=== PATIENT | male | born 1975 | race Hispanic/Latino ===

== ENCOUNTER 2020-11-13 00:58 | Emergency (ER) | payer SELFPAY ==
--- NOTE | 2020-11-13 03:26 | ER ---
[facility] Name: Yoel Keller Age: 45 yrs Sex: Male : 1975 Arrival Date: 11/13/2020 Time: 00:59 Bed 12 Private MD: Diagnosis: Pain in right leg Presentation: 11/13 02:08 Chief complaint: Patient states: pain in right leg that pt has been taking tylenol and dm5 ibuprofen for at home but the pain will make it hard to sleep at night. pain radiates from from inner thigh around knee to outer thigh. Coronavirus screen: Client denies travel out of the [place] in the last 14 days. At this time, the client does not indicate any symptoms associated with coronavirus-19. Ebola Screen: Patient negative for fever greater than or equal to 101.5 degrees Fahrenheit, and additional compatible Ebola Virus Disease symptoms Patient denies exposure to infectious person. Patient denies travel to an Ebola-affected area in the 21 days before illness onset. No symptoms or risks identified at this time. Initial Sepsis Screen: Does the patient meet any 2 criteria? No. Patient's initial sepsis screen is negative. Does the patient have a suspected source of infection? No. Patient's initial sepsis screen is negative. Risk Assessment: Do you want to hurt yourself or someone else? Patient reports no desire to harm self or others. Onset of symptoms was November 08, 2020. 02:08 Method Of Arrival: Ambulatory dm5 02:08 Acuity: JESSICA 4 dm5 Triage Assessment: 02:11 General: Appears in no apparent distress. Behavior is calm, cooperative. Pain: dm5 Complains of pain in right quadriceps. EENT: No deficits noted. No signs and/or symptoms were reported regarding the EENT system. Neuro: No deficits noted. Cardiovascular: No deficits noted. Respiratory: No deficits noted. GI: No deficits noted. No signs and/or symptoms were reported involving the gastrointestinal system. : No deficits noted. No signs and/or symptoms were reported regarding the genitourinary system. Derm: No deficits noted. No signs and/or symptoms reported regarding the dermatologic system. Musculoskeletal: Reports pain in right quadriceps. Historical: - Allergies: 02:11 No Known Allergies; dm5 - Home Meds: 02:11 None [Active]; dm5 - PMHx: 02:11 None; dm5 - PSHx: 02:11 Carpal Tunnel Repair; Appendectomy; dm5 - Immunization history:: Adult Immunizations up to date. - Social history:: Smoking status: Patient denies any tobacco usage or history of. - Family history:: not pertinent. ED Course: 00:59 Patient arrived in ED. cl3 02:04 Oneil Hernandez MD is Attending Physician. sam 02:08 Danielle Hawkins, RN is Primary Nurse. dm5 02:11 Triage completed. dm5 02:11 Arm band placed on Patient placed in an exam room. dm5 03:14 US Extremity Venous Unilateral Ltd In Process Unspecified. EDMS 03:25 Mainor Adan MD is Referral Physician. sam 03:34 Lumbar Spine (3 Views) XRAY In Process Unspecified. EDMS 03:34 Femur Right XRAY In Process Unspecified. EDMS Administered Medications: 03:30 Drug: Motrin 600 mg Route: PO; dm5 Outcome: 03:25 Discharge ordered by . sam 04:47 Patient left the ED. dm5 Signatures: Dispatcher [employer] EDMS Danielle Hawkins, RN RN dmOneil Mtz MD MD cha Lewis, Charde cl3
--- NOTE | 2020-11-13 03:26 | EDPHYS ---
Physician Documentation [facility] Name: Yoel Keller Age: 45 yrs Sex: Male : 1975 Arrival Date: 11/13/2020 Time: 00:59 Bed 12 Private MD: KAYLEN Physician Oneil Hernandez HPI: 11/13 02:35 This 45 yrs old Male presents to ER via Ambulatory with complaints of Leg Pain.sam 02:35 The patient presents with decreased range of motion, pain, tenderness. The complaints sam affect the medial aspect of right thigh and right quadriceps. Context: The problem was sustained at an unknown site, resulted from an unknown cause, the patient can partially bear weight, the patient is able to ambulate. Onset: The symptoms/episode began/occurred 2 week(s) ago. Modifying factors: The symptoms are alleviated by elevating leg, remaining still, the symptoms are aggravated by movement, weight bearing, bending knee. Associated signs and symptoms: The patient has no apparent associated signs or symptoms. Severity of symptoms: At their worst the symptoms were mild, moderate, in the emergency department the symptoms are unchanged. Historical: - Allergies: 02:11 No Known Allergies; dm5 - Home Meds: 02:11 None [Active]; dm5 - PMHx: 02:11 None; dm5 - PSHx: 02:11 Carpal Tunnel Repair; Appendectomy; dm5 - Immunization history:: Adult Immunizations up to date. - Social history:: Smoking status: Patient denies any tobacco usage or history of. - Family history:: not pertinent. ROS: 02:35 Constitutional: Negative for fever, chills, and weight loss, Eyes: Negative for injury, sam pain, redness, and discharge, ENT: Negative for injury, pain, and discharge, Neck: Negative for injury, pain, and swelling, Cardiovascular: Negative for chest pain, palpitations, and edema, Respiratory: Negative for shortness of breath, cough, wheezing, and pleuritic chest pain, Abdomen/GI: Negative for abdominal pain, nausea, vomiting, diarrhea, and constipation, : Negative for injury, bleeding, discharge, and swelling, Skin: Negative for injury, rash, and discoloration, Neuro: Negative for headache, weakness, numbness, tingling, and seizure, Psych: Negative for depression, anxiety, suicide ideation, homicidal ideation, and hallucinations, Allergy/Immunology: Negative for hives, rash, and allergies, Endocrine: Negative for neck swelling, polydipsia, polyuria, polyphagia, and marked weight changes, Hematologic/Lymphatic: Negative for swollen nodes, abnormal bleeding, and unusual bruising. 02:35 Back: Positive for pain at rest, pain with movement, of the lumbar area, left low back and right low back. 02:35 MS/extremity: Positive for decreased range of motion, pain, tenderness, of the medial aspect of right thigh. Exam: 02:35 Constitutional: This is a well developed, well nourished patient who is awake, alert, sam and in no acute distress. Head/Face: Normocephalic, atraumatic. Eyes: Pupils equal round and reactive to light, extra-ocular motions intact. Lids and lashes normal. Conjunctiva and sclera are non-icteric and not injected. Cornea within normal limits. Periorbital areas with no swelling, redness, or edema. ENT: Nares patent. No nasal discharge, no septal abnormalities noted. Tympanic membranes are normal and external auditory canals are clear. Oropharynx with no redness, swelling, or masses, exudates, or evidence of obstruction, uvula midline. Mucous membranes moist. Neck: Trachea midline, no thyromegaly or masses palpated, and no cervical lymphadenopathy. Supple, full range of motion without nuchal rigidity, or vertebral point tenderness. No Meningismus. Chest/axilla: Normal chest wall appearance and motion. Nontender with no deformity. No lesions are appreciated. Cardiovascular: Regular rate and rhythm with a normal S1 and S2. No gallops, murmurs, or rubs. Normal PMI, no JVD. No pulse deficits. Respiratory: Lungs have equal breath sounds bilaterally, clear to auscultation and percussion. No rales, rhonchi or wheezes noted. No increased work of breathing, no retractions or nasal flaring. Abdomen/GI: Soft, non-tender, with normal bowel sounds. No distension or tympany. No guarding or rebound. No evidence of tenderness throughout. Back: No spinal tenderness. No costovertebral tenderness. Full range of motion. Skin: Warm, dry with normal turgor. Normal color with no rashes, no lesions, and no evidence of cellulitis. Neuro: Awake and alert, GCS 15, oriented to person, place, time, and situation. Cranial nerves II-XII grossly intact. Motor strength 5/5 in all extremities. Sensory grossly intact. Cerebellar exam normal. Normal gait. Psych: Awake, alert, with orientation to person, place and time. Behavior, mood, and affect are within normal limits. 02:35 Musculoskeletal/extremity: ROM: limited active range of motion due to pain, in the lateral aspect of right thigh and medial aspect of right thigh, limited passive range of motion due to pain, Circulation is intact in all extremities. Sensation intact. Compartment Syndrome exam of affected extremity: is normal. MDM: 02:04 Patient medically screened. [facility] 02:38 Differential diagnosis: closed fracture, contusion, tendonitis. Data reviewed: vital [facility] signs, nurses notes, radiologic studies, doppler, plain films. Data interpreted: vehicle monitor technician: rate is 90 beats/min, rhythm is regular, Pulse oximetry: on room air is 96 %. Test interpretation: by ED physician or midlevel provider: plain radiologic studies. Counseling: I had a detailed discussion with the patient and/or guardian regarding: the historical points, exam findings, and any diagnostic results supporting the discharge/admit diagnosis, lab results, radiology results, the need for outpatient follow up, for definitive care, a family practitioner, a orthopedic surgeon. 11/13 02:35 Order name: US Extremity Venous Unilateral Ltd [facility] 11/13 02:35 Order name: Lumbar Spine (3 Views) XRAY [facility] 11/13 02:35 Order name: Femur Right [facility] Administered Medications: 03:30 Drug: Motrin 600 mg Route: PO; dm5 Disposition: 11/13/20 03:25 Discharged to Home. Impression: Pain in right leg. - Condition is Stable. - Discharge Instructions: Musculoskeletal Pain, Cryotherapy, [id number], Cryotherapy. - Prescriptions for Ibuprofen 600 mg Oral Tablet - take 1 tablet by ORAL route every 6 hours As needed take with food; 20 tablet. Medrol (Damion) 4 mg Oral Tablets, Dose Pack - take 1 tablet by ORAL route as directed - follow package instructions; 1 packet. - Medication Reconciliation Form, Thank You Letter, Antibiotic Education, Prescription Opioid Use form. - Follow up: Private Physician; When: 2 - 3 days; Reason: Recheck today's complaints, Continuance of care, Re-evaluation by your physician. Follow up: Dr. Mainor Adan; When: 2 - 3 days; Reason: Recheck today's complaints, Re-evaluation by your physician. - Problem is new. - Symptoms have improved. Signatures: Dispatcher [employer] Danielle Arellano, RN RN dm5 Oneil Hernandez MD MD cha Corrections: (The following items were deleted from the chart) 04:47 03:25 11/13/2020 03:25 Discharged to Home. Impression: Pain in right leg. Condition is dm5 Stable. Discharge Instructions: Musculoskeletal Pain, Cryotherapy, [id number], Cryotherapy. Prescriptions for Ibuprofen 600 mg Oral Tablet - take 1 tablet by ORAL route every 6 hours As needed take with food; 20 tablet, Medrol (Damion) 4 mg Oral Tablets, Dose Pack - take 1 tablet by ORAL route as directed - follow package instructions; 1 packet. and Forms are Medication Reconciliation Form, Thank You Letter, Antibiotic Education, Prescription Opioid Use. Follow up: Private Physician; When: 2 - 3 days; Reason: Recheck today's complaints, Continuance of care, Re-evaluation by your physician. Follow up: Dr. Manior Adan; When: 2 - 3 days; Reason: Recheck today's complaints, Re-evaluation by your physician. Problem is new. Symptoms have improved. sam
[2020-11-13] MEDS ORDERED: IBUPROFEN 200 MG TAB PO ONE (03:55)
[2020-11-13] MEDS ORDERED: IBUPROFEN 400 MG TAB ONE (03:55)
--- NOTE | 2020-11-13 09:57 | RAD REPORT ---
EXAM DESCRIPTION: US - Extremity Venous Uni Ltd - 11/13/2020 3:14 am CLINICAL HISTORY: PAIN, right leg Preliminary findings provided at the time of the study. COMPARISON: None. TECHNIQUE: Real-time sonographic evaluation of the right lower extremity deep venous systems was per formed. FINDINGS: Normal compressibility, flow augmentation, phasic flow and spontaneous flow are identified in the right lower extremity common femoral, superficial femoral, popliteal and posterior tibial vei ns. No intraluminal filling defects seen. IMPRESSION: No DVT in the right lower extremity.
--- NOTE | 2020-11-13 09:57 | RAD REPORT ---
EXAM DESCRIPTION: RAD - Lumbar Spine 3 Views - 11/13/2020 3:34 am CLINICAL HISTORY: PAIN COMPARISON: No comparisons FINDINGS: A three-view lumbar spine examination was performed. Lumbar bodies are normal in height and alignment. No fracture or acute bony process seen. No disc spa ce narrowing. No other significant findings. No pars defects identified. IMPRESSION: Negative Lumbar Spine examination.
--- NOTE | 2020-11-13 09:58 | RAD REPORT ---
EXAM DESCRIPTION: RAD - Femur Right - 11/13/2020 3:34 am CLINICAL HISTORY: PAIN COMPARISON: No comparisons FINDINGS: No fracture, dislocation or periosteal reaction noted. No acute or suspicious bony finding . No air or foreign body in the soft tissues. IMPRESSION: Negative right femur examination.
== END 2020-11-13 04:47 | disposition home or self-care (01) ==
LOC: ER 00:58
DX: M79.651 Pain in right thigh (principal)
CPT/HCPCS: 72100; 93971; 99283